=== PATIENT | female | born 1955 | race Two or more races ===

== ENCOUNTER 2023-02-17 16:51 | Emergency (ER) | payer OTHER ==
[~2023-02-17] VITALS: Ht 160 cm; Wt 131.5 kg
[2023-02-17] MEDS ORDERED: GABAPENTIN100 M2 PO (17:14)
[2023-02-17] MEDS ORDERED: OMEPRAZOLE40 MG PO (17:14)
[2023-02-17] MEDS ORDERED: XARELTO20 MG PO (17:14)
[2023-02-17] MEDS ORDERED: TRELEGY ELLIPT1 EAC1 IH (17:15)
== END 2023-02-17 19:22 | disposition home or self-care (01) ==
LOC: ER 16:51
DX: M54.59 Other low back pain (principal); M25.552 Pain in left hip; M79.662 Pain in left lower leg; M19.90 Unspecified osteoarthritis, unspecified site; W01.0XXA Fall on same level from slipping, tripping and stumbling without subsequent striking against object, initial encounter; Y93.89 Activity, other specified; Y92.89 Other specified places as the place of occurrence of the external cause